=== PATIENT | female | born 1995 | race Caucasian/White ===

== ENCOUNTER 2024-09-18 21:35 | Emergency (ER) | payer MEDICAID, SELFPAY ==
[2024-09-18 21:36] VITALS: BMI 34.7
[2024-09-18 22:16] VITALS: BP 143/95; PULSE 76; RESP 18; TEMP 37; O2SAT 99
--- NOTE | 2024-09-18 22:29 | PD.EDEYE ---
ED Eye Problem RME/HPI General Chief complaint: Eye Problems Stated complaint: R EYE INJUR Time Seen by Provider: 09/18/24 22:25 Arrival date/time: 09/18/24 21:35 28F with no significant PMH presents to ED with R eye pain after her daughter accidentally poked her there. Limitations: no limitations Related Data Home Medications ?Medication ?Instructions ?Recorded ?Confirmed prenat.vits,lilo,njz-[id number] 1 tab PO QDAY 09/21/21 01/25/22 Previous Rx's ?Medication ?Instructions ?Recorded hydromorphone 2 mg tablet 2 mg PO Q6H PRN pain #20 tabs 01/26/22 erythromycin 5 mg/gram (0.5 %) eye 0.5 inch ophthalmic (eye) QID 7 09/18/24 ointment days #3.5 grams Allergies Allergy/AdvReac Type Severity Reaction Status Date / Time hydrocodone Allergy Rash Verified 09/18/24 21:40 Review of Systems Review of Systems Systems Reviewed: All systems reviewed, normal except as documented Constitutional Constitutional: Reports system reviewed and no additional complaints, except as documented, Denies fever(s) and Denies headache(s) Eyes Eyes: Reports as per HPI and Reports irritation ENT Ears, Nose, Mouth, and Throat: Denies disequilibrium and Denies headache(s) Cardiovascular Cardiovascular: Reports system reviewed and no additional complaints, except as documented, Denies chest pain and Denies dyspnea Respiratory Respiratory: Reports system reviewed and no additional complaints, except as documented, Denies cough and Denies dyspnea Gastrointestinal Gastrointestinal: Reports system reviewed and no additional complaints, except as documented, Denies abdominal pain, Denies nausea and Denies vomiting Neurologic Neurologic: Reports system reviewed and no additional complaints, except as documented, Denies confusion, Denies disequilibrium and Denies headache(s) Psychiatric Psychiatric: Denies confusion Past Medical History Past Medical History NEUROLOGIC: Negative Neurological Disorders or Seizures CARDIAC: Negative Cardiac Disorders or Congestive Heart Failure RESPIRATORY: Negative Chronic Obstructive Pulmonary Disease (COPD) GASTROINTESTINAL: Positive Gastrointestinal Disorders and Obesity; Negative Hepatitis GENITOURINARY: Negative Genitourinary Disorders or Renal Disease REPRODUCTIVE: Positive Previous Pregnancies; Negative Endometriosis, Pelvic Inflammatory Disease or Uterine Prolapse MUSCULOSKELETAL: Negative Musculoskeletal Disorders ENDOCRINE: Negative Diabetes Mellitus Type 1 or Diabetes Mellitus Type 2 HEMATOLOGIC: Negative Blood Disorders or Clotting Problems OTHER HISTORY: Negative Hospitalization, Autoimmune Disease, Down Syndrome, Developmental Delay, Shingles, Falls, Blood Transfusions, Blood Transfusion Reaction, Anesthesia Reactions, MRSA, VRSA, Vancomycin-Resistant Enterococci, Human Immunodeficiency Virus (HIV), Chicken Pox, Measles, Mumps, Rubella (Azerbaijani Measles), Pertussis, Clostridium Difficile or Cancer Family History FAMILY HISTORY: Positive Family Cancer (AUNTS HAD THYROID AND BREAST CANCER, COLON CANCER.) and Family Surgery (MOM HAD KIDNEY STONES, GALLSTONE, APPENDIX REMOVED); Negative Family Psychiatric Problems, Family Respiratory Disorders, Family Cardiac Disorders, Family Gastrointestinal Problems or Family Anesthesia Reaction Social History SMOKING STATUS: Never smoker SECOND HAND EXPOSURE: No ED Exam General Limitations: Present no limitations General appearance: Present alert and in no apparent distress Head Head exam: Present atraumatic Eye Eye exam: Present PERRL and EOMI Expanded Eye Exam Sclera/Conjunctival: right: injection (mild) ENT ENT exam: Present normal exam, normal oropharynx and mucous membranes moist Neck Neck exam: Present normal inspection, full ROM and trachea midline Chest Chest inspection: Present normal inspection and symmetric chest wall rise Respiratory Respiratory exam: Present normal lung sounds bilaterally Cardiovascular Cardiovascular exam: Present regular rate, normal rhythm and normal heart sounds Abdominal Exam Abdominal exam: Present soft and normal bowel sounds Extremities Exam Extremities exam: Present normal inspection and full ROM Back Exam Back exam: Present normal inspection and full ROM Neurological Exam Neurological exam: Present alert, oriented X3 and CN II-XII intact Psychiatric Psychiatric exam: Present normal affect and normal mood Skin Skin exam: Present warm, dry, intact and normal color Course Quality Measures none Orders Category Date Time Status ED Eye Irrigation ONCE Care 09/18/24 22:30 Active Ndiaye Lamp to Bedside X1 Care 09/18/24 22:26 Active Erythromycin Op Oint 0.5% Med 09/18/24 23:04 Discontinued 1 gm RIGHT EYE X1 ONE Fluorescein Sodium [[id number]] Med 09/18/24 22:26 Discontinued 1 mg RIGHT EYE X1 ONE TETRACAINE Op Madelyn 0.5% [Pontocaine Op Madelyn 0.5%] Med 09/18/24 22:26 Discontinued 1 drop RIGHT EYE X1 ONE Vital Signs Vital signs: Vital Signs Temperature 98.6 F 09/18/24 22:16 Pulse Rate 76 09/18/24 22:16 Respiratory Rate 18 09/18/24 22:16 Blood Pressure 143/95 H 09/18/24 22:16 Pulse Oximetry (%) 99 09/18/24 22:16 Oxygen Delivery Method Room Air 09/18/24 22:16 O2 at 99% on RA and WNLs Eye MDM Narrative MDM Narrative:: 28F with no significant PMH presents to ED with R eye pain after her daughter accidentally poked her there. Physical exam reveals mild R eye redness with lots of tearing. Normal pupil response and EOM. No gross abnormality. Patient is afebrile, calm, and alert. Wood's lamp exam reveals 2 distinct areas of corneal abrasion. Meds and veterans' counselor given. Patient data External records reviewed:: [facility] previous records Clinical information provided by:: patient Social determinants that could affect healthcare access:: none Patient has the following chronic illnesses:: none How is presenting disease/condition affected by chronic disease/condition?: no chronic disease Evaluation data The following diagnostics were reviewed and interpreted by me:: other (specify) (none) Lab and/or radiology exams considered but not ordered:: not ordered Interpretation Summary: n/a Medications / Prescriptions Medications or Prescriptions considered but not ordered:: ordered Medication administrations:: Medication Administration History Discontinued Medications Erythromycin (Erythromycin Op Oint 0.5% 1 Gm Packet) 1 gm RIGHT EYE X1 ONE Stop: 09/18/24 23:05 Fluorescein Sodium (Fluorescein Sod 1 Mg Strp) 1 mg RIGHT EYE X1 ONE Stop: 09/18/24 22:27 Tetracaine HCl (Tetracaine Pf Op Madelyn 0.5% 4 Ml Drpette) 1 drop RIGHT EYE X1 ONE Stop: 09/18/24 22:27 above Consultations Consultation(s) initiated? (list below): No Diagnosis Eye Problem Differential Diagnosis: corneal abrasion, conjunctivitis, acute iritis, hyphema, periorbital cellulitis, subconjunctival hemorrhage, glaucoma, corneal ulcer, ruptured globe and other Most likely diagnosis given after review of the tests above:: corneal abrasion Admission Indicated Admission indicated?: not indicated Admission Request Was there a request for admission?: No Disposition Plan Disposition Plan: Discharge Discharge Attestation Discharge Attestation: The patient and all family members were given an opportunity to ask questions and understood the discharge instructions. Discharge instructions specifically effects, indications for sooner follow up or return to the emergency department, and the expected course of current diagnosis. Patient condition: Stable Discharge Plan Plan Patient Disposition: HOME (Self Care) Discharge Disposition comment: Stable Prescriptions/Referrals Prescriptions/Med Rec: New erythromycin 5 mg/gram (0.5 %) ointment 0.5 inch ophthalmic (eye) QID 7 Days Qty: 3.5 0RF No Action Vitamin Tablet 1 tab PO QDAY hydromorphone 2 mg tablet 2 mg PO Q6H MDD 4 PRN (Reason: pain) Qty: 20 0RF Rx Instructions: She has taken before and is not allergic. Referrals: Quinn Nagy MD [Primary Care Provider] - In 1 week Problem List Clinical Impression: Corneal abrasion Patient/Caregiver Discharge Instructions Education Materials: ED Corneal Abrasion Additional Instructions: Please follow-up with PCP within 24-48 hours and return immediately if symptoms worsen. See eye doctor soon. Print Language: Emirati Stand Alone Forms: Patient Portal Info Letter CARLOS/POONAM Supervising Physician CARLOS/POONAM Supervising Physician: Dr. Iniguez
[2024-09-18] MEDS: FLUORESCEIN SOD 1 MG STRP RIGHT EYE (22:42)
[2024-09-18] MEDS: TETRACAINE PF OP SOL 0.5% 4 ML DRPETTE 1 DROP RIGHT EYE (22:42)
[2024-09-18] MEDS: Erythromycin Op Oint 0.5% 1 GM PACKET RIGHT EYE (23:15)
== END 2024-09-18 23:19 | disposition home or self-care (01) ==
PROVIDERS: Emergency Provider Emergency Medicine; PCP Family Medicine
DX: S05.01XA Injury of conjunctiva and corneal abrasion without foreign body, right eye, initial encounter (principal); X58.XXXA Exposure to other specified factors, initial encounter
CPT/HCPCS: 99283; A9270

== ENCOUNTER 2025-01-18 23:15 | Emergency (ER) | payer MEDICAID, SELFPAY ==
[2025-01-18 23:24] VITALS: BP 150/91; PULSE 87; RESP 18; TEMP 36.8; O2SAT 98
--- NOTE | 2025-01-18 23:26 | XR_ITS ---
Examination: Abdomen sonogram, Limited Date and time of exam: January 19, 2025, 0009 hrs. Indications: Abdominal pain and vomiting beginning 5 hours ago Technique: Real-time campos scale transabdominal sonographic images of the upper abdomen obtained. Findings: Multiple gallstones Gallbladder wall 0.3 cm no edema Common bile duct 0.4 cm Pancreatic head 2.7 cm Liver 18.1 cm smooth contour no focal liver lesions Normal hepatopedal portal venous flow Patent IVC Impression: Cholelithiasis, negative for cholecystitis
--- NOTE | 2025-01-18 23:27 | PD.EDRME ---
Rapid Medical Screening Exam RME Arrival date/time: 01/18/25 23:15 This is a case of 39-year-old female with no medical history came in in the emergency room due to abdominal pain mainly on the both upper abdomen and epigastric area associated with nausea and vomiting no constipation no diarrhea no blood in stool worsening of the symptoms this patient decided to sought consult in the emergency room Chief Complaint: Abdominal Pain Time Seen by Provider: 01/18/25 23:20 Vital signs: Vital Signs Temperature 98.2 F 01/18/25 23:24 Pulse Rate 87 01/18/25 23:24 Respiratory Rate 18 01/18/25 23:24 Blood Pressure 150/91 H 01/18/25 23:24 Pulse Oximetry (%) 98 01/18/25 23:24 Oxygen Delivery Method Room Air 01/18/25 23:24
[2025-01-18 23:49] LABS: Basophils # (Auto) 0.1 Thou/mm3 (0.0-0.2); Basophils % (Auto) 1 % (0-2.5); Eosinophils # (Auto) 0.3 Thou/mm3 (0.0-0.5); Eosinophils % (Auto) 4 % (0-10); Hematocrit 37.4 % (36.0-46.0); Hemoglobin 12.6 g/dL (12.0-16.0); Immature Granulocytes Auto 0.02 Thou/mm3 (0.00-0.00); Lymphocytes # (Auto) 2.5 Thou/mm3 (1.0-4.8); Lymphocytes % (Auto) 27 % (10-50); Mean Corpuscular HGB Conc 33.7 g/dl (31.0-37.0); Mean Corpuscular Hemoglobin 29.6 pg (25.0-35.0); Mean Corpuscular Volume 88 fL (80-100); Monocytes # (Auto) 0.5 Thou/mm3 (0.0-0.8); Monocytes % (Auto) 6 % (0-12); Neutrophils # (Auto) 5.6 Thou/mm3 (1.8-7.7); Neutrophils % (Auto) 62 % (37-80); Nucleated Red Blood Cell # 0.00 Thou/mm3 (0.00-0.00); Nucleated Red Blood Cell % 0 /100 WBC (0); Platelet Count 253 Thou/mm3 (140-440); RDW Standard Deviation 41.7 fL (36.4-46.3); Red Blood Count 4.26 Miln/mm3 (4.00-5.20); White Blood Count 9.0 Thou/mm3 (3.6-11.0)
[2025-01-18] MEDS: KETOROLAC INJ 60 MG/2 ML VIAL 30 MG IM (23:52)
[2025-01-18] MEDS: ONDANSETRON INJ 2 MG/ML INJ 2 ML 4 MG IM (23:52)
[2025-01-19 00:05] LABS: Alanine Aminotransferase 19 U/L (10-49); Albumin, Serum 4.8 gm/dL (3.5-5.0); Albumin/Globulin Ratio 1.9 (1.2-2.2); Alkaline Phosphatase 82 U/L (46-116); Amylase 47 U/L (30-118); Anion Gap 8 (7-16); Aspartate Amino Transferase 15 U/L (0-34); BUN/Creatinine Ratio 11 Ratio (12-20); Bilirubin,Total 0.2 mg/dL (0.3-1.2); Blood Urea Nitrogen 9 mg/dL (9-23); Calcium 9.5 mg/dL (8.3-10.6); Calcium (Corrected) 9.5 mg/dL (8.5-10.1); Carbon Dioxide 25.9 mMol/L (20.0-31.0); Chloride 107 mMol/L (98-107); Creatinine (Component) 0.8 mg/dL (0.6-1.3); Globulin 2.5 gm/dL (2.3-3.5); Glucose 120 mg/dL (74-106); Osmolality,Calculated 280 (275-295); Potassium 4.2 mMol/L (3.4-5.1); Sodium 141 mMol/L (136-145); Total Protein 7.3 gm/dL (5.7-8.2); eGFR > 60 See Note
[2025-01-19 02:10] LABS: Collection Type, Urine Clean Catch
[2025-01-19 02:19] LABS: HCG Qualitative,Urine Negative
--- NOTE | 2025-01-19 02:25 | PRELIM_ITS ---
Gallbladder ultrasound with Doppler and wave Doppler spectral analysis. January 19, 2025 at 0009 hours Clinical history: Gallstone. Comparison: No prior study is available for comparison. Findings: Hepatomegaly gallbladder wall thickening. Stones at the gallbladder neck. No pericholecystic fluid is identified. The common duct is normal in caliber at 3.8 mm. No free fluid is demonstrated on the submitted images. The portal vein is patent with hepatopetal flow and normal with Doppler spectral analysis. Hurt sign is not available at the time of this report. Impression: Stones at the gallbladder neck associated with gallbladder wall thickening are suspicious for acute cholecystitis. Hepatomegaly. Report Electronically Signed By: Miky Wang 01/19/2025 2:24:58 AM [EST]
[2025-01-19 02:31] LABS: Bilirubin,Urine Negative (Negative); Blood,Urine Negative (Negative); Clarity,Urine Clear (Clear/Hazy); Color,Urine Yellow (Lt Yel-Yel); Glucose, Urine Negative (Negative); Ketones,Urine Negative (Negative); Leukocyte Esterase,Urine Positive (Negative); Nitrite,Urine Negative (Negative); PH,Urine 6.5 (5.0-7.0); Protein,Urine Trace (Neg - Trace); RBC,Urine 4 /hpf (0-3); Specific Gravity,Urine 1.029 (1.001-1.035); Squamous Epithelial Cell,Urine 3 /hpf (0-5); Urobilinogen,Urine Negative mg/dL (0.0-1.0); WBC,Urine 3 /hpf (0-5)
[2025-01-19 03:05] VITALS: BP 137/80; PULSE 76; RESP 17; TEMP 36.8; O2SAT 99
[2025-01-19 03:28] VITALS: BMI 35.5
--- NOTE | 2025-01-19 04:02 | EDNOTE_ITS ---
ED Abdominal Pain RME/HPI General Chief Complaint: Abdominal Pain Stated complaint: ABD PAIN Time seen by provider: 01/18/25 23:20 Arrival date/time: 01/18/25 23:15 RME / HPI RME / HPI narrative: 01/18/25 23:15 This is a case of 39-year-old female with no medical history came in in the emergency room due to abdominal pain mainly on the both upper abdomen and epigastric area associated with nausea and vomiting no constipation no diarrhea no blood in stool worsening of the symptoms this patient decided to sought consult in the emergency room _ 29-year-old female with no significant past medical history presented to [facility] emergency department with a chief complaint of abdominal pain and epigastric region tenderness, patient was seen in triage workup ordered. Patient was given Zofran and IM Toradol, workup fairly benign CBC within normal limits, CMP within normal limits as well. Urinalysis negative for UTI, hCG negative. Gallbladder ultrasound showed cholelithiasis, negative for cholecystitis. Findings discussed with patient, pain under control patient to follow-up with general surgery outpatient. Stable for discharge Related Data Allergies Allergy/AdvReac Type Severity Reaction Status Date / Time hydrocodone Allergy Rash Verified 01/18/25 23:16 Review of Systems Review of Systems Systems Reviewed: All systems reviewed, normal except as documented Past Medical History Past Medical History NEUROLOGIC: Negative Neurological Disorders or Seizures CARDIAC: Negative Cardiac Disorders or Congestive Heart Failure RESPIRATORY: Negative Chronic Obstructive Pulmonary Disease (COPD) GASTROINTESTINAL: Positive Gastrointestinal Disorders and Obesity; Negative Hepatitis GENITOURINARY: Negative Genitourinary Disorders or Renal Disease REPRODUCTIVE: Positive Previous Pregnancies; Negative Endometriosis, Pelvic Inflammatory Disease or Uterine Prolapse MUSCULOSKELETAL: Negative Musculoskeletal Disorders ENDOCRINE: Negative Diabetes Mellitus Type 1 or Diabetes Mellitus Type 2 HEMATOLOGIC: Negative Blood Disorders or Clotting Problems OTHER HISTORY: Negative Hospitalization, Autoimmune Disease, Down Syndrome, Developmental Delay, Shingles, Falls, Blood Transfusions, Blood Transfusion Reaction, Anesthesia Reactions, MRSA, VRSA, Vancomycin-Resistant Enterococci, Human Immunodeficiency Virus (HIV), Chicken Pox, Measles, Mumps, Rubella (Icelandic Measles), Pertussis, Clostridium Difficile or Cancer Family History FAMILY HISTORY: Positive Family Cancer (AUNTS HAD THYROID AND BREAST CANCER, COLON CANCER.) and Family Surgery (MOM HAD KIDNEY STONES, GALLSTONE, APPENDIX REMOVED); Negative Family Psychiatric Problems, Family Respiratory Disorders, Family Cardiac Disorders, Family Gastrointestinal Problems or Family Anesthesia Reaction Social History SMOKING STATUS: Never smoker SECOND HAND EXPOSURE: No ED Exam Narrative Physical exam: Physical Exam General: Awake and in no acute distress. Conversational and non-toxic appearing. HEENT: Normocephalic, atraumatic, mucous membranes moist. Heart: Regular rate and rhythm, no murmurs. Lungs: Clear to auscultation with no wheezing or crackles. Abdomen: Soft, obese, nondistended, nontender, positive bowel sounds. ?No guarding or rebound tenderness. Neurologic: Alert and oriented x3, no gross neurological deficit, and patient able to move all 4 extremities. Extremities: No edema. Skin: No rash or ecchymoses. Course Quality Measures none Orders Category Date Time Status US gall bladder Stat Exams 01/18/25 23:26 Completed Amylase Stat Lab 01/18/25 23:35 Completed CBC Stat Lab 01/18/25 23:35 Completed Comprehensive Metabolic Panel Stat Lab 01/18/25 23:35 Completed HCG Qualitative,Urine Stat Lab 01/19/25 01:30 Completed Urinalysis Stat Lab 01/19/25 01:30 Completed Ketorolac Inj [Toradol Inj] Med 01/18/25 23:26 Discontinued 30 mg IM X1 ONE Ondansetron Inj [Zofran Inj] Med 01/18/25 23:25 Discontinued 4 mg IM X1 ONE Vital Signs Vital signs: Vital Signs Temperature 98.2 F 01/18/25 23:24 Pulse Rate 87 01/18/25 23:24 Respiratory Rate 18 01/18/25 23:24 Blood Pressure 150/91 H 01/18/25 23:24 Pulse Oximetry (%) 98 01/18/25 23:24 Oxygen Delivery Method Room Air 01/18/25 23:24 Abdominal Pain MDM MDM Narrative MDM Narrative:: #Cholelithiasis 29-year-old female with no significant past medical history presented to [facility] emergency department with a chief complaint of abdominal pain and epigastric region tenderness, patient was seen in triage workup ordered. Patient was given Zofran and IM Toradol, workup fairly benign CBC within normal limits, CMP within normal limits as well. Urinalysis negative for UTI, hCG negative. Gallbladder ultrasound showed cholelithiasis, negative for cholecystitis. Findings discussed with patient, pain under control patient to follow-up with general surgery outpatient. Stable for discharge Case discussed with Attending Physician Dr. Jose Cabrera MD Internal Medicine PGY-2 Disclaimer: This note was dictated by speech recognition. Minor errors in corporate traffic manager may be present due to voice recognition software. Patient data External records reviewed:: [facility] previous records Clinical information provided by:: patient Social determinants that could affect healthcare access:: none Patient has the following chronic illnesses:: None How is presenting disease/condition affected by chronic disease/condition?: no chronic disease Evaluation data The following diagnostics were reviewed and interpreted by me:: lab results and radiology exam(s) Lab and/or radiology exams considered but not ordered:: None Interpretation Summary: Workup fairly benign CBC within normal limits, CMP within normal limits as well. Urinalysis negative for UTI, hCG negative. Gallbladder ultrasound showed cholelithiasis, negative for cholecystitis. Medications / Prescriptions Medications or Prescriptions considered but not ordered:: None Medication administrations:: Medication Administration History Discontinued Medications Ketorolac Tromethamine (Ketorolac Inj 60 Mg/2 Ml Vial) 30 mg IM X1 ONE Stop: 01/18/25 23:27 Last Admin: 01/18/25 23:52 Dose: 30 mg Documented By: VANESSA Ondansetron HCl (Ondansetron Inj 2 Mg/Ml Inj 2 Ml) 4 mg IM X1 ONE; Protocol Stop: 01/18/25 23:26 Last Admin: 01/18/25 23:52 Dose: 4 mg Documented By: VANESSA As above Consultations Consultation(s) initiated? (list below): No Diagnosis Differential diagnosis abdominal pain: abdominal pain and other (Cholelithiasis) Most likely diagnosis given after review of the tests above:: Cholelithiasis Admission Indicated Admission indicated?: not indicated Admission Request Was there a request for admission?: No Disposition Plan Disposition Plan: Discharge Discharge Attestation Discharge Attestation: The patient and all family members were given an opportunity to ask questions and understood the discharge instructions. Discharge instructions specifically effects, indications for sooner follow up or return to the emergency department, and the expected course of current diagnosis. Patient condition: Stable Discharge Plan Plan Patient Disposition: HOME (Self Care) Patient condition on transfer: Stable Health Concerns: - You were seen in the emergency department today for abdominal pain, your blood work showed no sign of infection, your liver enzymes are within normal limits, your kidney function is normal and your electrolytes are normal as well. We did an ultrasound of your gallbladder which shows some gallbladder wall edema and gallstones, we recommend obtaining a referral for general surgeon from your primary care physician for further management. - Take [id number] Tylenol Extra Strength or ibuprofen as needed for management of your pain. - Return to the emergency department if you have fever, chills, myalgias or other signs of infection. - Follow-up with your primary care physician within 1 week. Prescriptions/Referrals Prescriptions/Med Rec: Discontinued Vitamin Tablet 1 tab PO QDAY hydromorphone 2 mg tablet 2 mg PO Q6H MDD 4 PRN (Reason: pain) Qty: 20 0RF Rx Instructions: She has taken before and is not allergic. Referrals: Quinn Nagy MD [Primary Care Provider, Family Practice] - In 1 week Problem List Clinical Impression: Cholelithiasis Patient/Caregiver Discharge Instructions Discharge Activity: activity as tolerated Education Materials: What Are Gallstones, ED Gallstones with Biliary Colic Print Language: Malagasy Stand Alone Forms: Brii Award Info., Patient Portal Info Letter
== END 2025-01-19 04:27 | disposition home or self-care (01) ==
PROVIDERS: Nurse Practitioner Family; Emergency Provider Emergency Medicine; PCP Family Medicine
DX: K80.20 Calculus of gallbladder without cholecystitis without obstruction (principal); Z88.5 Allergy status to narcotic agent
CPT/HCPCS: 36415; 76705; 80053; 81001; 81025; 82150; 85025; 96372; 99283; J1885; J2405

== ENCOUNTER 2025-04-18 14:38 | Emergency (ER) | payer MEDICAID, SELFPAY ==
--- NOTE | 2025-04-18 15:26 | EDNOTE_ITS ---
ED OB Contraction Preg RMI/HPI General Chief complaint: Vaginal Bleeding Stated complaint: INTERMITTENT VAGINAL SPOTTING, PREG 8WKS Time Seen by Provider: 04/18/25 15:27 Arrival date/time: 04/18/25 14:38 RME / HPI RME / HPI Narrative: See MDM for Dr. Burnette's HPI documentation. Related Data Allergies Allergy/AdvReac Type Severity Reaction Status Date / Time hydrocodone Allergy Mild Rash Verified 04/18/25 14:40 Review of Systems Review of Systems Systems Reviewed: All systems reviewed, normal except as documented Past Medical History Past Medical History NEUROLOGIC: Negative Neurological Disorders or Seizures CARDIAC: Negative Cardiac Disorders or Congestive Heart Failure RESPIRATORY: Negative Chronic Obstructive Pulmonary Disease (COPD) GASTROINTESTINAL: Positive Gastrointestinal Disorders and Obesity; Negative Hepatitis GENITOURINARY: Negative Genitourinary Disorders or Renal Disease REPRODUCTIVE: Positive Previous Pregnancies; Negative Endometriosis, Pelvic Inflammatory Disease or Uterine Prolapse MUSCULOSKELETAL: Negative Musculoskeletal Disorders ENDOCRINE: Negative Diabetes Mellitus Type 1 or Diabetes Mellitus Type 2 HEMATOLOGIC: Negative Blood Disorders or Clotting Problems OTHER HISTORY: Negative Hospitalization, Autoimmune Disease, Down Syndrome, Developmental Delay, Shingles, Falls, Blood Transfusions, Blood Transfusion Reaction, Anesthesia Reactions, MRSA, VRSA, Vancomycin-Resistant Enterococci, Human Immunodeficiency Virus (HIV), Chicken Pox, Measles, Mumps, Rubella ([place] Measles), Pertussis, Clostridium Difficile or Cancer Family History FAMILY HISTORY: Positive Family Cancer (AUNTS HAD THYROID AND BREAST CANCER, COLON CANCER.) and Family Surgery (MOM HAD KIDNEY STONES, GALLSTONE, APPENDIX REMOVED); Negative Family Psychiatric Problems, Family Respiratory Disorders, Family Cardiac Disorders, Family Gastrointestinal Problems or Family Anesthesia Reaction Surgical History SURGICAL: Positive Section Social History SMOKING STATUS: Never smoker SECOND HAND EXPOSURE: No ED Exam Narrative Physical exam: See MDM for Dr. Burnette's physical exam documentation. Course Quality Measures none Orders Category Date Time Status US OB <= 14 weeks fetus Stat Exams 04/18/25 15:28 Completed Beta HCG,Quantitative Stat Lab 04/18/25 15:40 Completed Bilirubin,Direct Stat Lab 04/18/25 15:40 Completed CBC Stat Lab 04/18/25 15:40 Completed CMP [Comprehensive Metabolic Panel] Stat Lab 04/18/25 15:40 Completed Magnesium Stat Lab 04/18/25 15:40 Completed Reticulocyte Count Stat Lab 04/18/25 15:40 Completed TSH [Thyroid Stimulating Hormone] Stat Lab 04/18/25 15:40 Completed UA, C/S IF [Urinalysis, C/S if Indicated] Stat Lab 04/18/25 15:29 Completed Vital Signs Vital signs: Vital Signs Temperature 98 F 04/18/25 15:31 Pulse Rate 83 04/18/25 15:31 Respiratory Rate 14 04/18/25 15:31 Blood Pressure 173/97 H 04/18/25 15:31 Pulse Oximetry (%) 99 04/18/25 15:31 Oxygen Delivery Method Room Air 04/18/25 15:31 Vaginal Bleeding MDM Narrative MDM Narrative: This section includes all my notes and documentations, including HPI, PE, and ED course. Martín Burnette MD HPI: 29-year-old female (~8 week ) here with about a week history of on and off vaginal spotting. No pelvic cramping. No other complaints. ROS: All negative except as documented in HPI. Physical Exam: General: Alert and oriented. No acute distress when remaining still. Eyes: Conjunctivae and lids clear. ENT: No nasal congestion. Neck: Supple. Heart: RRR. Lungs: No respiratory distress. Good air movement. No rhonchi, wheezing, rales. Abdomen: Soft and nontender. Normal bowel sounds. No distension. No rebound or guarding. Back: No CVA tenderness. Skin: Warm and dry. Neuro: Alert and oriented X 3. I reviewed all diagnostic test results: My review of the OB US report is viable 7 week IUP. Blood tests and urine tests remarkable for Beta HCG [id number]. At this point, diagnoses include: Threatened miscarriage Recommended expectant management. Based on my best medical judgment, made decision no further evaluation or treatment indicated at this time. Patient understands and agrees to the discharge instructions customized and printed, see below. Discharge Instructions from Dr. Burnette printed for you: 1. After evaluation, your baby is doing well with good cardiac activity. 2. Based on ultrasound today, gestational age is about 7 weeks. 3. Only time will tell what will happen. If your symptoms, including bleeding, worsen, you can have a miscarriage. If your symptoms stop, you can have successful . 4. If you do have a miscarriage, we won't be able to save your baby. Under 20-24 weeks, we can't save the baby. 5. No sexual activity until cleared by a doctor taking care of you. 6. See a private doctor on 04/20/2025 for recheck and further care. Ask to review all test results and official radiology reports, to make sure you receive all necessary follow-ups and monitoring. 7. Seek immediate medical care with intolerable pain, extremely heavy vaginal bleeding (soaking more than 3 pads per hour), or with any concerns. Martín Burnette MD Patient data External records reviewed:: [facility] previous records (Per chart review, patient was seen here on 01/19/25 for cholelithiasis.) Clinical information provided by:: patient Social determinants that could affect healthcare access:: none Patient has the following chronic illnesses:: none How is presenting disease/condition affected by chronic disease/condition?: no chronic disease Evaluation data The following diagnostics were reviewed and interpreted by me:: lab results and radiology exam(s) Lab and/or radiology exams considered but not ordered:: none Interpretation Summary: I reviewed all diagnostic test results: My review of the OB US report is viable 7 week IUP. Blood tests and urine tests remarkable for Beta HCG [id number]. Medications / Prescriptions Medications or Prescriptions considered but not ordered:: none Medication administrations:: none Consultations Consultation(s) initiated? (list below): No Diagnosis Vaginal Bleeding Differential Diagnosis: missed , threatened , dysfunctional uterine bleeding, incomplete , ectopic without intrauterine and vaginal bleeding Most likely diagnosis given after review of the tests above:: Threatened miscarriage Admission Indicated Admission indicated?: not indicated Explain why admission is indicated or not indicated:: With no condition needing emergent intervention, there was no indication for admission. Admission Request Was there a request for admission?: No Disposition Plan Disposition Plan: Discharge Discharge Attestation Discharge Attestation: The patient and all family members were given an opportunity to ask questions and understood the discharge instructions. Discharge instructions specifically effects, indications for sooner follow up or return to the emergency department, and the expected course of current diagnosis. Patient condition: Stable Discharge Plan Plan Patient Disposition: HOME (Self Care) Prescriptions/Referrals Referrals: Keiry Hammonds PA-C [Primary Care Provider] - In 1 week Problem List Clinical Impression: Threatened miscarriage Patient/Caregiver Discharge Instructions Discharge Activity: activity as tolerated Education Materials: ED Possible Miscarriage ... Additional Instructions: Discharge Instructions from Dr. Burnette printed for you: 1. After evaluation, your baby is doing well with good cardiac activity. 2. Based on ultrasound today, gestational age is about 7 weeks. 3. Only time will tell what will happen. If your symptoms, including bleeding, worsen, you can have a miscarriage. If your symptoms stop, you can have successful . 4. If you do have a miscarriage, we won't be able to save your baby. Under 20-24 weeks, we can't save the baby. 5. No sexual activity until cleared by a doctor taking care of you. 6. See a private doctor on 04/20/2025 for recheck and further care. Ask to review all test results and official radiology reports, to make sure you receive all necessary follow-ups and monitoring. 7. Seek immediate medical care with intolerable pain, extremely heavy vaginal bleeding (soaking more than 3 pads per hour), or with any concerns. Print Language: Trinidadian Stand Alone Forms: [employer] Award Info., Patient Portal Info Letter
--- NOTE | 2025-04-18 15:28 | XR_ITS ---
Examination: Complete OB ultrasound, less than 14 weeks, transabdominal Date and time of exam: April 18, 2025, 1534 hours INDICATIONS: Vaginal bleeding today, early by history Technique: Obstetrical ultrasound images less than 14 weeks performed via transabdominal imaging Findings: A normal shaped single intrauterine gestation is present in the uterus. CRL 1.0 cm corresponds to 7 weeks 0 days gestational age, cardiac motion 147 bpm Ultrasonographic survey of visible and placental structures unremarkable. Amniotic fluid volume appears appropriate for this estimated gestational age. Right ovary 2.9 cm arterial flow Left ovary 4.0 cm arterial flow 3 cm corpus luteum cyst IMPRESSION: Viable intrauterine gestation 7 weeks 0 days.
[2025-04-18 15:31] VITALS: BP 173/97; PULSE 83; RESP 14; TEMP 36.6; O2SAT 99; BMI 37.1
[2025-04-18 15:33] LABS: Collection Type, Urine Clean Catch
[2025-04-18 15:48] LABS: Basophils # (Auto) 0.0 Thou/mm3 (0.0-0.2); Basophils % (Auto) 0 % (0-2.5); Eosinophils # (Auto) 0.0 Thou/mm3 (0.0-0.5); Eosinophils % (Auto) 0 % (0-10); Hematocrit 36.3 % (36.0-46.0); Hemoglobin 12.5 g/dL (12.0-16.0); Immature Granulocytes Auto 0.03 Thou/mm3 (0.00-0.00); Immature Reticulocyte Fraction 8.5 % (3.0-15.9); Lymphocytes # (Auto) 1.9 Thou/mm3 (1.0-4.8); Lymphocytes % (Auto) 19 % (10-50); Mean Corpuscular HGB Conc 34.4 g/dl (31.0-37.0); Mean Corpuscular Hemoglobin 29.3 pg (25.0-35.0); Mean Corpuscular Volume 85 fL (80-100); Monocytes # (Auto) 0.4 Thou/mm3 (0.0-0.8); Monocytes % (Auto) 4 % (0-12); Neutrophils # (Auto) 7.7 Thou/mm3 (1.8-7.7); Neutrophils % (Auto) 77 % (37-80); Nucleated Red Blood Cell # 0.00 Thou/mm3 (0.00-0.00); Nucleated Red Blood Cell % 0 /100 WBC (0); Platelet Count 239 Thou/mm3 (140-440); RDW Standard Deviation 37.5 fL (36.4-46.3); Red Blood Count 4.27 Miln/mm3 (4.00-5.20); Reticulocyte % (Auto) 1.1 % (0.5-1.5); Reticulocyte Absolute Auto 47.4 Biln/L (25.0-75.0); Reticulocyte Hgb Content 33.6 pg (28.0-35.0); White Blood Count 10.0 Thou/mm3 (3.6-11.0)
[2025-04-18 15:59] LABS: Bilirubin,Urine Negative (Negative); Blood,Urine 1+ (Negative); Clarity,Urine Clear (Clear/Hazy); Color,Urine Lt-Yellow (Lt Yel-Yel); Culture Indicated,Urine Not Indicated; Glucose, Urine Negative (Negative); Ketones,Urine Negative (Negative); Leukocyte Esterase,Urine Negative (Negative); Nitrite,Urine Negative (Negative); PH,Urine 6.5 (5.0-7.0); Protein,Urine Negative (Neg - Trace); RBC,Urine 1 /hpf (0-3); Specific Gravity,Urine 1.008 (1.001-1.035); Squamous Epithelial Cell,Urine 2 /hpf (0-5); Urobilinogen,Urine Negative mg/dL (0.0-1.0); WBC,Urine 1 /hpf (0-5)
[2025-04-18 16:15] LABS: Alanine Aminotransferase 15 U/L (10-49); Albumin, Serum 4.7 gm/dL (3.5-5.0); Albumin/Globulin Ratio 1.6 (1.2-2.2); Alkaline Phosphatase 74 U/L (46-116); Anion Gap 8 (7-16); Aspartate Amino Transferase 16 U/L (0-34); BUN/Creatinine Ratio 10 Ratio (12-20); Bilirubin,Direct 0.1 mg/dL (0.0-0.3); Bilirubin,Total 0.3 mg/dL (0.3-1.2); Blood Urea Nitrogen 7 mg/dL (9-23); Calcium 9.3 mg/dL (8.3-10.6); Calcium (Corrected) 9.3 mg/dL (8.5-10.1); Carbon Dioxide 23.7 mMol/L (20.0-31.0); Chloride 107 mMol/L (98-107); Creatinine (Component) 0.7 mg/dL (0.6-1.3); Estimated Creatinine Clearance 144.7 mL/min (>60); Globulin 3.0 gm/dL (2.3-3.5); Glucose 98 mg/dL (74-106); Magnesium 2.0 mg/dL (1.6-2.6); Osmolality,Calculated 275 (275-295); Potassium 3.8 mMol/L (3.4-5.1); Sodium 139 mMol/L (136-145); Thyroid Stimulating Hormone 1.88 uIU/mL (0.55-4.78); Total Protein 7.7 gm/dL (5.7-8.2); eGFR > 60 See Note
== END 2025-04-18 16:38 | disposition home or self-care (01) ==
PROVIDERS: Emergency Provider Emergency Medicine; PCP Physician Assistant
DX: O20.0 Threatened abortion (principal); Z3A.01 Less than 8 weeks gestation of pregnancy
CPT/HCPCS: 36415; 76801; 80053; 81001; 82248; 83735; 84443; 84702; 85025; 85046; 99283